=== PATIENT | female | born 1980 | race African-American/Black ===

== ENCOUNTER 2016-12-12 15:04 | Emergency (ER) | payer OTHER | END 2016-12-12 15:42 | disposition home or self-care (01) | LOC: BURERS 15:04 | DX: S61.216A Laceration without foreign body of right little finger without damage to nail, initial encounter (principal); I10 Essential (primary) hypertension; F17.210 Nicotine dependence, cigarettes, uncomplicated; W26.0XXA Contact with knife, initial encounter; Y93.G1 Activity, food preparation and clean up | CPT/HCPCS: 12001 ==